=== PATIENT | male | born 1980 | race Caucasian/White ===

== ENCOUNTER 2018-12-20 08:43 | Emergency (ER) | payer MEDICAID ==
[~2018-12-20] VITALS: Ht 172.7 cm; Wt 72.6 kg
[2018-12-20 08:52] VITALS: BP_SYST 130
[2018-12-20] MEDS ORDERED: KETOROLAC TROMETHAMINE 60 MG/2 ML VIAL IM ONE (09:15)
[2018-12-20] MEDS ORDERED: LORazepam 1 MG TABLET PO ONE (09:15)
[2018-12-20 10:35] VITALS: BP_SYST 124
[2018-12-20 10:35] LABS: BILIRUBIN,URINE NEGATIVE (NEGATIVE); BLOOD, URINE 2+ (NEGATIVE); CLARITY/URINE CLEAR (CLEAR); COLOR,URINE YELLOW (YELLOW); GLUCOSE,URINE NEGATIVE (NEGATIVE); KETONES,URINE NEGATIVE (NEGATIVE); LEUKOCYTE ESTERASE ,URINE NEGATIVE (NEGATIVE); NITRITE, URINE NEGATIVE (NEGATIVE); PH,URINE >=9.0 (5.0-8.0); PROTEIN URINE 2+ (NEGATIVE); UROBILINOGEN,URINE 0.2 (0.2-1.0)
[2018-12-20 10:41] LABS: BACTERIA,URINE RARE /HPF (None Seen); MUCUS,URINE 1+ /LPF (None Seen); RBC,URINE 20-50 /HPF (0-3); WBC,URINE 0-3 /HPF (0-3)
[2018-12-22 05:14] LABS: CHLAMYDIA TRACHOMATIS NAA Negative (Negative); NEISSERIA GONORRHOEAE NAA Negative (Negative)
== END 2018-12-20 10:35 | disposition home or self-care (01) ==
LOC: SED 08:43
DX: N41.0 Acute prostatitis (principal)
CPT/HCPCS: 74018; 81000; 87491; 87591; 96372; 99284; J1885; 99283

== ENCOUNTER 2020-03-31 12:19 | Emergency (ER) | payer MEDICAID ==
[~2020-03-31] VITALS: Ht 172.7 cm; Wt 77.1 kg
[2020-03-31 12:20] VITALS: BP_SYST 136
--- NOTE | 2020-03-31 12:20 | NUR ---
BROUGHT BACK TO BED #4 AND TRIAGED. REPORT GIVEN TO LADONNA
--- NOTE | 2020-03-31 12:23 | NUR ---
Patient arrived in the ED WITH c/o alcohol withdrawal. Patient drinks 1L of Vodka daily for the last 25 years. Recently discharged from [facility]. Denied any chest pain or shortness of breath. Denied any fevers, chills, nausea or vomiting. Patient is alert and oriented x4, respirations even and unlabored, speaking in full sentences, and ambulating with a steady gait. VSS, pain level 0/10. Informed of the approximate wait time. Instructed to notify ED staff for any changes in condition or worsening of symptoms while waiting to be seen by an ED provider. Patient verbalized understanding.
--- NOTE | 2020-03-31 12:31 | NUR ---
ER Dr. Westbrook at bedside examining patient.
--- NOTE | 2020-03-31 12:35 | NUR ---
# 18 gauge angiocath placed to LAC. Use of asceptic technique. Opsite placed over site. Blood return noted. Blood for lab drawn from site. Flushed with 10 cc of normal saline. No evidence of infiltration noted. Patient tolerated well.
[2020-03-31] MEDS ORDERED: METOCLOPRAMIDE HCL 10 MG/2 ML VIAL IVP ONE (12:45)
[2020-03-31] MEDS ORDERED: NACL 0.9% 1,000 ML IV ONE (12:45)
[2020-03-31 13:11] LABS: BASOPHILS % (AUTO) 0.3 % (0.0-2.0); EOSINOPHILS % (AUTO) 0.6 % (0.0-4.0); HEMATOCRIT 39.7 % (36-54); HEMOGLOBIN 13.8 g/dL (14.0-18.0); LYMPHOCYTES # (AUTO) 0.8 K/uL (1.0-5.5); LYMPHOCYTES % (AUTO) 13.1 % (20.5-51.5); MEAN CORPUSCULAR HEMOGLOBIN 31 pg (27-31); MEAN CORPUSCULAR HGB CONC 35 % (32-36); MEAN CORPUSCULAR VOLUME 88 fL (79.0-98.0); MONOCYTES # (AUTO) 0.4 K/uL (0.0-1.0); MONOCYTES % (AUTO) 6.3 % (1.7-9.3); NEUTROPHILS % (AUTO) 79.7 % (40.0-70.0); PLATELET COUNT (AUTO) 127 K/uL (130-430); RED BLOOD CELL COUNT(AUTO) 4.49 MIL/uL (4.2-6.2); RED CELL DISTRIBUTION WIDTH 13.9 % (9.0-15.0); WHITE BLOOD COUNT (AUTO) 6.2 K/uL (4.8-10.8)
[2020-03-31 13:18] LABS: ANION GAP 14 (5-15); CALCIUM 9.1 mg/dL (8.4-11.0); CHLORIDE 93 mmol/L (98-107); CREATININE 0.64 mg/dL (0.55-1.30); GLUCOSE 150 mg/dL (70-99); POTASSIUM 3.1 mmol/L (3.5-5.1); SODIUM SERUM 135 mmol/L (136-145); UREA NITROGEN, BLOOD 9 mg/dL (8-21)
[2020-03-31 13:23] LABS: GFR AFRICAN AMERICAN 180 mL/min (>90)
--- NOTE | 2020-03-31 13:25 | NUR ---
Administered Reglan IVP as ordered by Dr. Westbrook. Patient tolerated the medications well. See eMAR for details.
[2020-03-31 13:27] LABS: ALANINE AMINOTRANSFERASE 78 U/L (12-78); ALBUMIN 4.5 g/dL (3.4-4.8); ALCOHOL, BLOOD 179 mg/dL (<10); ASPARTATE AMINOTRANSFERASE 97 U/L (10-37); LIPASE 220 U/L (73-393); TOTAL BILIRUBIN 1.2 mg/dL (0.0-1.0)
[2020-03-31] MEDS ORDERED: LORazepam 2 MG/ML VIAL IVP ONE (13:30)
[2020-03-31] MEDS ORDERED: D5NS 500 ML IV ONE (13:30)
--- NOTE | 2020-03-31 13:40 | NUR ---
Patient left AMA. AMA form signed. MD is aware. Patient denied any chest pain or shortness of breath. Respirations even and unlabored, speaking in full sentences and ambulated with a steady gait.
[2020-03-31 13:45] VITALS: BP_SYST 136
== END 2020-03-31 13:40 | disposition left against medical advice (07) ==
LOC: SED 12:19
DX: R10.13 Epigastric pain (principal); E87.2 Acidosis; F10.229 Alcohol dependence with intoxication, unspecified
CPT/HCPCS: 36415; 80053; 81002; 83690; 84484; 85025; 93005; 96374; 99284; G0482; J7030

== ENCOUNTER 2020-04-08 11:06 | Emergency (ER) | payer MEDICAID ==
[~2020-04-08] VITALS: Ht 172.7 cm; Wt 77.1 kg
[2020-04-08 11:37] VITALS: BP_SYST 144
--- NOTE | 2020-04-08 11:42 | NUR ---
Patient triaged and placed in waiting room. VSS and patient appears in no acute distress at this time. Awaiting available bed, and MD notified of need for MSE.
--- NOTE | 2020-04-08 11:50 | NUR ---
ER Dr. Westbrook in waiting room examining patient.
[2020-04-08 12:19] LABS: BASOPHILS % (AUTO) 0.6 % (0.0-2.0); EOSINOPHILS % (AUTO) 0.2 % (0.0-4.0); HEMATOCRIT 38.9 % (36-54); HEMOGLOBIN 13.3 g/dL (14.0-18.0); LYMPHOCYTES # (AUTO) 0.8 K/uL (1.0-5.5); LYMPHOCYTES % (AUTO) 11.8 % (20.5-51.5); MEAN CORPUSCULAR HEMOGLOBIN 31 pg (27-31); MEAN CORPUSCULAR HGB CONC 34 % (32-36); MEAN CORPUSCULAR VOLUME 90 fL (79.0-98.0); MONOCYTES # (AUTO) 1.2 K/uL (0.0-1.0); MONOCYTES % (AUTO) 17.5 % (1.7-9.3); NEUTROPHILS # (AUTO) 4.7 K/uL (1.8-7.7); NEUTROPHILS % (AUTO) 69.9 % (40.0-70.0); PLATELET COUNT (AUTO) 231 K/uL (130-430); RED BLOOD CELL COUNT(AUTO) 4.32 MIL/uL (4.2-6.2); RED CELL DISTRIBUTION WIDTH 14.5 % (9.0-15.0); WHITE BLOOD COUNT (AUTO) 6.8 K/uL (4.8-10.8)
[2020-04-08 12:40] LABS: ALBUMIN 4.4 g/dL (3.4-4.8); CALCIUM 8.7 mg/dL (8.4-11.0); CREATININE 0.64 mg/dL (0.55-1.30); TOTAL BILIRUBIN 0.9 mg/dL (0.0-1.0)
[2020-04-08 12:43] LABS: POTASSIUM 2.9 mmol/L (3.5-5.1)
--- NOTE | 2020-04-08 13:11 | NUR ---
Patient to [facility] for evaluation. Side rails up. Report given to GIOVANNA Turk.
[2020-04-08] MEDS ORDERED: POTASSIUM CHLORIDE 20 MEQ/PKT PACKET PO ONE ×2 (13:15→15:45)
[2020-04-08] MEDS ORDERED: NACL 0.9% 1,000 ML IV ONE (13:30)
[2020-04-08] MEDS ORDERED: chlordiazePOXIDE HCL 25 MG CAPSULE PO ONE (13:30)
--- NOTE | 2020-04-08 13:45 | NUR ---
ANGELO TO ASSUME CARE, CALM, ALERT, RESP UNLABORED, SKIN WARM AND DRY. STEADY GAIT, NO DISTRESS
[2020-04-08] MEDS ORDERED: LORazepam 2 MG/ML VIAL IVP ONE (15:15)
--- NOTE | 2020-04-08 15:33 | NUR ---
DR PAULINO IN FOR REASSESSMENT. PT CALM, ALERT, STATED FEELING BETTER.
[2020-04-08] MEDS ORDERED: POTASSIUM CHLORIDE 20 MEQ/PKT PACKET ONE (15:44)
[2020-04-08 16:00] VITALS: BP_SYST 138
--- NOTE | 2020-04-08 16:02 | NUR ---
Patient given written and verbal discharge instructions and verbalizes understanding. ER MD discussed with patient the results and treatment provided. Patient in stable condition. ID arm band removed. IV catheter removed intact and dressing applied, no active bleeding. Opportunity for questions provided and answered.
== END 2020-04-08 16:00 | disposition home or self-care (01) ==
LOC: SED 11:06
DX: F10.239 Alcohol dependence with withdrawal, unspecified (principal); R25.2 Cramp and spasm; E87.6 Hypokalemia
CPT/HCPCS: 36415; 80053; 85025; 96361; 96374; 99284; J2060; J7030

== ENCOUNTER 2020-07-21 15:54 | Emergency (ER) | payer MEDICAID ==
[~2020-07-21] VITALS: Ht 172.7 cm; Wt 77.1 kg
[2020-07-21 15:56] VITALS: BP_SYST 147
[2020-07-21] MEDS ORDERED: ONDANSETRON HCL 4 MG/2 ML VIAL ONE (16:07)
[2020-07-21] MEDS ORDERED: NACL 0.9% 1,000 ML IV ONE (16:15)
[2020-07-21] MEDS ORDERED: ONDANSETRON HCL 4 MG/2 ML VIAL IVP ONE (16:15)
[2020-07-21] MEDS ORDERED: ONDA8TAB6 PO (16:30)
[2020-07-21] MEDS ORDERED: IBUP-1971 PO (16:30)
[2020-07-21] MEDS ORDERED: KETOROLAC TROMETHAMINE 30 MG VIAL IVP ONE (16:30)
[2020-07-21] MEDS ORDERED: LIB25 PO (16:30)
[2020-07-21 17:15] LABS: CALCIUM 8.5 mg/dL (8.4-11.0); CREATININE 0.85 mg/dL (0.55-1.30); POTASSIUM 3.7 mmol/L (3.5-5.1)
[2020-07-21 17:17] LABS: BASOPHILS % (AUTO) 0.5 % (0.0-2.0); HEMATOCRIT 42.8 % (36-54); HEMOGLOBIN 14.7 g/dL (14.0-18.0); LYMPHOCYTES # (AUTO) 0.9 K/uL (1.0-5.5); LYMPHOCYTES % (AUTO) 14.4 % (20.5-51.5); MEAN CORPUSCULAR HEMOGLOBIN 32 pg (27-31); MEAN CORPUSCULAR HGB CONC 34 % (32-36); MEAN CORPUSCULAR VOLUME 93 fL (79.0-98.0); MONOCYTES # (AUTO) 0.4 K/uL (0.0-1.0); MONOCYTES % (AUTO) 5.3 % (1.7-9.3); NEUTROPHILS # (AUTO) 5.3 K/uL (1.8-7.7); NEUTROPHILS % (AUTO) 79.8 % (40.0-70.0); PLATELET COUNT (AUTO) 199 K/uL (130-430); RED BLOOD CELL COUNT(AUTO) 4.59 MIL/uL (4.2-6.2); RED CELL DISTRIBUTION WIDTH 13.4 % (9.0-15.0); WHITE BLOOD COUNT (AUTO) 6.6 K/uL (4.8-10.8)
[2020-07-21 17:21] LABS: ALBUMIN 4.1 g/dL (3.4-4.8); TOTAL BILIRUBIN 0.9 mg/dL (0.0-1.0)
[2020-07-21] MEDS ORDERED: LORazepam 2 MG/ML VIAL IVP ONE (17:30)
[2020-07-21 18:00] VITALS: BP_SYST 140
== END 2020-07-21 18:00 | disposition home or self-care (01) ==
LOC: SED 15:54
DX: R11.2 Nausea with vomiting, unspecified (principal); F41.9 Anxiety disorder, unspecified; F17.290 Nicotine dependence, other tobacco product, uncomplicated; I10 Essential (primary) hypertension; Z79.899 Other long term (current) drug therapy
CPT/HCPCS: 36415; 80053; 83690; 85025; 96361; 96374; 96375; 99284; J1885; J2060; J2405; J7030

== ENCOUNTER 2021-01-18 09:16 | Inpatient (IN) | payer MEDICAID, SELFPAY ==
[~2021-01-18] VITALS: Ht 177.8 cm; Wt 74.8 kg
[~2021-01-18 09:16] MED LIST: IBUP-1971 PO; LIB25 PO; ONDA8TAB6 PO
--- NOTE | 2021-01-18 09:25 | NUR ---
Patient to ER bed 5 to gown for evaluation. Side rails up. Report given to Arsen HEREDIA.
--- NOTE | 2021-01-18 09:25 | NUR ---
MD HUANG AT BEDSIDE ASSESSING PT.
[2021-01-18 09:29] VITALS: BP_SYST 155
[2021-01-18] MEDS ORDERED: NACL 0.9% 2,000 ML IV ONE (09:30)
[2021-01-18] MEDS ORDERED: LORazepam 2 MG/ML VIAL IVP ONE ×2 (09:30→10:30)
--- NOTE | 2021-01-18 09:40 | NUR ---
IV ACCESS INSERTED TO THE RIGHT AC IN ONE ATTEMPT WITH 20G. IV FLUIDS STARTED, LABS TAKEN.
[2021-01-18 09:55] LABS: BASOPHILS % (AUTO) 0.4 % (0.0-2.0); EOSINOPHILS % (AUTO) 0.1 % (0.0-4.0); HEMATOCRIT 41.1 % (36-54); HEMOGLOBIN 14.4 g/dL (14.0-18.0); LYMPHOCYTES # (AUTO) 0.9 K/uL (1.0-5.5); LYMPHOCYTES % (AUTO) 8.7 % (20.5-51.5); MEAN CORPUSCULAR HEMOGLOBIN 32 pg (27-31); MEAN CORPUSCULAR HGB CONC 35 % (32-36); MEAN CORPUSCULAR VOLUME 93 fL (79.0-98.0); MONOCYTES # (AUTO) 0.4 K/uL (0.0-1.0); MONOCYTES % (AUTO) 3.6 % (1.7-9.3); NEUTROPHILS # (AUTO) 8.9 K/uL (1.8-7.7); NEUTROPHILS % (AUTO) 87.2 % (40.0-70.0); PLATELET COUNT (AUTO) 225 K/uL (130-430); RED BLOOD CELL COUNT(AUTO) 4.43 MIL/uL (4.2-6.2); RED CELL DISTRIBUTION WIDTH 13.7 % (9.0-15.0); WHITE BLOOD COUNT (AUTO) 10.2 K/uL (4.8-10.8)
[2021-01-18 09:59] LABS: ANION GAP 16 (5-15); CHLORIDE 93 mmol/L (98-107); CREATININE 0.94 mg/dL (0.55-1.30); GLUCOSE 242 mg/dL (70-99); POTASSIUM 3.4 mmol/L (3.5-5.1); SODIUM SERUM 137 mmol/L (136-145); UREA NITROGEN, BLOOD 9 mg/dL (8-21)
[2021-01-18 10:03] LABS: GFR AFRICAN AMERICAN 115 mL/min (>90)
[2021-01-18 10:05] LABS: ALANINE AMINOTRANSFERASE 68 U/L (12-78); ALBUMIN 4.6 g/dL (3.4-4.8); ALCOHOL, BLOOD 166 mg/dL (<10); AMYLASE 186 U/L (0-100); ASPARTATE AMINOTRANSFERASE 70 U/L (10-37); LIPASE 208 U/L (73-393); PROTHROMBIN TIME 10.3 SECS (9.5-12.5); TOTAL BILIRUBIN 0.6 mg/dL (0.0-1.0)
--- NOTE | 2021-01-18 10:14 | NUR ---
PT GIVEN JUICE AND ICE WATER WELL, RN NOTED A NEAT DROP IN HR WHEN GIVEN GLUCOSE IN THE FORM OF JUICE. PT IS CALMING DOWN STEADILY.
--- NOTE | 2021-01-18 10:15 | NUR ---
PT ADMITS TO BEING AN ALCOHOLIC AND WORRIED ABOUT IMPENDING SEIZURE AND/OR VOMITING.
[2021-01-18 10:22] LABS: ACETONE, SERUM NEGATIVE (NEGATIVE)
--- NOTE | 2021-01-18 10:29 | NUR ---
IMPROVEMENTS NOTED IN ALL VS, AND ANXIETY LEVEL. PT IS RESTING, SITTING UP AT 45 DEGREES. MD ORDERED 2ND NS BAG ALONG WITH ATIVAN. NOTED.
[2021-01-18] MEDS ORDERED: LORA-259 PO (11:43)
--- NOTE | 2021-01-18 13:00 | NUR ---
ADMITTED UNDER MD ZOE JONES AND HAS PUT IN ALL ORDERS . PT WILL BE HELD IN THE ER UNTIL TELEMETRY BED/NURSE IS AVAILABLE.
[2021-01-18] MEDS ORDERED: MORPHINE 2 MG/ML INJ. SYRINGE IVP PRN (14:00)
[2021-01-18] MEDS ORDERED: DEXTROSE 50% JECT 50 ML DISP.SYRIN IVP PRN (14:00)
[2021-01-18] MEDS ORDERED: MORPHINE 4 MG INJ. 4 MG/ML VIAL IVP PRN (14:00)
[2021-01-18] MEDS ORDERED: INSULIN LISPRO SLIDING SCALE 100 UNITS/ML VIAL (humaLOG) SUBCUT PRN (14:00)
[2021-01-18] MEDS ORDERED: POTASSIUM CHLORIDE 20 MEQ TAB.PRT.SR PO PRN (14:15)
[2021-01-18] MEDS: ONDANSETRON HCL 4 MG/2 ML VIAL IVP PRN (15:24)
[2021-01-18] MEDS: LORazepam 2 MG/ML VIAL IVP PRN ×2 (15:28→20:01)
[2021-01-18] MEDS ORDERED: POTASSIUM CHLORIDE 20 MEQ TAB.PRT.SR ONE (15:59)
--- NOTE | 2021-01-18 16:18 | NUR ---
PT CONTINUES TO REST, HR IS 79, MUCH IMPROVED. PT STILL HAS TREMORS AND OCCASIONAL VOMIT RETCHING.
[2021-01-18] MEDS ORDERED: FOLIC ACID 1 MG TABLET PO ONE (17:00)
[2021-01-18] MEDS ORDERED: THIAMINE HCL 100 MG TABLET PO ONE (17:00)
[2021-01-18] MEDS ORDERED: THIAMINE HCL 100 MG TABLET ONE (18:26)
--- NOTE | 2021-01-18 19:20 | NUR ---
RECEIVED REPORT FROM GIOVANNA BARRIENTOS. PATIENT SLEEPING AT THIS TIME. NO VISUAL SIGNS OF DISTRESS.
[2021-01-18] MEDS: NACL 0.9% 1,000 ML IV SCH (19:28)
[2021-01-18 19:37] LABS: BARBITURATE, URINE NEGATIVE (NEG <=200); BENZODIAZEPINE, URINE POSITIVE (NEG <=150); CANNABINOID, URINE NEGATIVE (NEG <=50); COCAINE, URINE NEGATIVE (NEG <=150); METHAMPHETAMINES SCREEN,URINE NEGATIVE (NEG <=500); OPIATE, URINE NEGATIVE (NEG <=100); PHENCYCLIDINE SCREEN,URINE NEGATIVE (NEG <=25); UR TRICYCLIC ANTIDEPRESSANTS NEGATIVE (NEG <=300); URINE AMPHETAMINE NEGATIVE (NEG <=500); URINE METHADONE NEGATIVE (NEG <=200); URINE OXYCODONE SCREEN NEGATIVE (NEG <=100); URINE PROPOXYPHENE SCREEN NEGATIVE (NEG <=300)
--- NOTE | 2021-01-18 20:30 | NUR ---
DR. GRAFF AT BEDSIDE WITH PATIENT.
--- NOTE | 2021-01-18 21:26 | NUR ---
BS CHECKED 89. NO COVERAGE NEEDED.
[2021-01-18] MEDS ORDERED: LIDOCAINE VISCOUS 2%, 15 ML UDC MM ONE (21:45)
--- NOTE | 2021-01-18 22:19 | NUR ---
Patient's code status is FULL CODE paperwork completed and placed in chart.
--- NOTE | 2021-01-18 22:59 | NUR ---
medication administered as ordered.
--- NOTE | 2021-01-18 23:32 | NUR ---
Medicated per MD orders. IVF infusing with no s/s of infiltration at this time. Will cont to monitor
--- NOTE | 2021-01-19 01:00 | NUR ---
PT STATING HAVING ANXIETY WITH TREMORS. ADDITIONAL ATIVAN PRN GIVEN. PT TOLERATING WELL.
[2021-01-19] MEDS: LORazepam 2 MG/ML VIAL IVP PRN ×3 (01:17→10:25)
--- NOTE | 2021-01-19 02:39 | NUR ---
Patient resting quietly. No acute distress noted. Vital signs within normal range.
--- NOTE | 2021-01-19 04:20 | NUR ---
Patient resting quietly. No acute distress noted. Vital signs within normal range. IVF INFUSING WITHOUT DIFFICULTIES. NO FURTHER SIGNS OF ANXIETY.
[2021-01-19] MEDS ORDERED: LORazepam 2 MG/ML VIAL ONE (05:42)
--- NOTE | 2021-01-19 06:27 | NUR ---
BELONGINGS DONE AT BEDSIDE.
[2021-01-19] MEDS: NACL 0.9% 1,000 ML IV SCH (07:07)
--- NOTE | 2021-01-19 07:10 | NUR ---
REPORT GIVEN TO GIOVANNA PATEL WHO WILL ASSUME CARE.
--- NOTE | 2021-01-19 07:17 | NUR ---
Pt is resting in [facility] VSS no distress noted at this time.
--- NOTE | 2021-01-19 07:20 | NUR ---
Patient will be admitted to care of Dr. Sultana. Admitted to Telemetry unit. Will go to room 130A. Belongings list completed. Complete and up to date summary report printed. SBAR report to be given at bedside with opportunity for questions.
--- NOTE | 2021-01-19 07:36 | NUR ---
# 22 gauge angiocath placed to LFA. Use of asceptic technique. Opsite placed over site. Blood return noted. Blood for lab drawn from site. Flushed with 10 cc of normal saline. No evidence of infiltration noted. Patient tolerated well.
--- NOTE | 2021-01-19 07:36 | NUR ---
transferred to telemetry unit via [facility] accompanied by staff.
[2021-01-19 08:00] VITALS: BP_SYST 131
--- NOTE | 2021-01-19 08:00 | NUR ---
ADMISSION NOTE Received patient from ER via gurney. Patient admitted with diagnosis of . Patient is awake, alert, oriented X 4. Patient oriented to hospital room, call light, toileting, pain management and safety-teach back done. Personal belongings checked and Belongings List documented. Call light within reach.
[2021-01-19] MEDS: ONDANSETRON HCL 4 MG/2 ML VIAL IVP PRN (08:21)
[2021-01-19] MEDS ORDERED: THIAMINE HCL 100 MG TABLET PO SCH (09:00)
[2021-01-19] MEDS ORDERED: FOLIC ACID 1 MG TABLET PO SCH (09:00)
[2021-01-19] MEDS ORDERED: PANTOPRAZOLE SODIUM 40 MG TAB PO SCH (09:00)
[2021-01-19 09:39] LABS: BASOPHILS % (AUTO) 0.3 % (0.0-2.0); EOSINOPHILS # (AUTO) 0.1 K/uL (0.0-0.4); EOSINOPHILS % (AUTO) 0.9 % (0.0-4.0); HEMATOCRIT 37.3 % (36-54); LYMPHOCYTES # (AUTO) 0.6 K/uL (1.0-5.5); LYMPHOCYTES % (AUTO) 7.7 % (20.5-51.5); MEAN CORPUSCULAR HEMOGLOBIN 32 pg (27-31); MEAN CORPUSCULAR HGB CONC 35 % (32-36); MEAN CORPUSCULAR VOLUME 93 fL (79.0-98.0); MONOCYTES # (AUTO) 0.3 K/uL (0.0-1.0); NEUTROPHILS # (AUTO) 6.7 K/uL (1.8-7.7); NEUTROPHILS % (AUTO) 87.1 % (40.0-70.0); PLATELET COUNT (AUTO) 124 K/uL (130-430); RED BLOOD CELL COUNT(AUTO) 4.01 MIL/uL (4.2-6.2); RED CELL DISTRIBUTION WIDTH 13.1 % (9.0-15.0); WHITE BLOOD COUNT (AUTO) 7.7 K/uL (4.8-10.8)
[2021-01-19 09:57] LABS: CALCIUM 8.4 mg/dL (8.4-11.0); CREATININE 0.61 mg/dL (0.55-1.30); POTASSIUM 3.1 mmol/L (3.5-5.1)
--- NOTE | 2021-01-19 10:00 | NUR ---
RN NOTE DR. THORNTON AT BEDSIDE, EXAMINING PATIENT. PATIENT PULLED OUT IV. NEW IV STARTED ON RIGHT FOREARM 22G. SEIZURE PRECAUTIONS INITIATED. PATIENT COMPLAINING OF ANXIETY. ATIVAN 1 MG IVP GIVEN. WILL MONITOR PATIENT.
[2021-01-19] MEDS ORDERED: MAGNESIUM OXIDE 400 MG TABLET PO ONE (14:15)
--- NOTE | 2021-01-19 14:29 | NUR ---
CONSULTATION PAGED/CALLED Reason for Consultation: [] DEPRESSION, ALCOHOL ABUSE Person Who was Notified: [] SIGRID Consulting Physician: [] DR CHILD Internal Controls Manager Specialty: [] PSYCH Ordering Physician: [] DR JONES
--- NOTE | 2021-01-19 14:36 | NUR ---
AMA: Patient does not wish to proceed with medical care recommended by Dr. Santamaria. Patient given information related to possible complications, up to and including , which could occur as a result of leaving hospital at this time. Patient verbalizes understanding of risks involved leaving against medical advice. Patient has signed AMA form. Patient escorted out by security.
--- NOTE | 2021-01-19 14:37 | NUR ---
ATTENDING MD DR JONES WAS CALLED TO INFORM HIM THAT PT WENT AMA.
== END 2021-01-19 14:35 | disposition left against medical advice (07) | DRG 425 ==
LOC: SED 09:16 → STU 13:55
PROVIDERS: ADMIT Hospitalist; ATTEND Hospitalist
DX: E87.6 Hypokalemia (principal); E87.2 Acidosis; E11.65 Type 2 diabetes mellitus with hyperglycemia; F41.9 Anxiety disorder, unspecified; F10.129 Alcohol abuse with intoxication, unspecified; Y90.9 Presence of alcohol in blood, level not specified; R74.01 Elevation of levels of liver transaminase levels; Z53.29 Procedure and treatment not carried out because of patient's decision for other reasons; F32.9 Major depressive disorder, single episode, unspecified; Z20.822 Contact with and (suspected) exposure to COVID-19; Z79.1 Long term (current) use of non-steroidal anti-inflammatories (NSAID); Z79.899 Other long term (current) drug therapy
CPT/HCPCS: 36415; 71045; 80048; 80053; 80307; 82009; 82150; 82962; 83036; 83605; 83690; 83735; 84484; 85025; 85610-TC; 85730-TC; 96361; 96374; 96376; 99285; G0378; G0482; J2001; J2060; J2270; J2405

== ENCOUNTER 2022-07-09 02:55 | Emergency (ER) | payer OTHER, MEDICAID ==
[~2022-07-09] VITALS: Ht 172.7 cm; Wt 81.6 kg
[2022-07-09 02:55] VITALS: BP_SYST 124
[~2022-07-09 02:55] MED LIST changes: +LORA-259 PO
--- NOTE | 2022-07-09 02:58 | NUR ---
Patient to ER bed 06 to gown for evaluation. Side rails up. Report given to GIOVANNA DOUGHERTY.
--- NOTE | 2022-07-09 03:02 | NUR ---
Dr. Boggs at bedside examining the patient.
--- NOTE | 2022-07-09 03:04 | NUR ---
Patient arrived to ED bed 6 for c/o alcohol intoxication. Patient said that he feels "anxious and restless." Patient said that he drank vodka today. Patient went to [facility] Wednesday night, but was discharged from ED [facility] a few hours later. 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 He went to addiction treatment facility to be admitted. Patient has appointment at [facility] in morning according to patient, but patient said he "does not feel normal" at this time. Dr. Boggs at bedside to MSE patient.
[2022-07-09] MEDS ORDERED: NACL 0.9% 1,000 ML IV ONE ×2 (03:15→04:45)
[2022-07-09] MEDS ORDERED: LORazepam 2 MG/ML VIAL IVP ONE ×2 (03:15→04:45)
--- NOTE | 2022-07-09 03:29 | NUR ---
Portable x-ray done at bedside.
[2022-07-09 04:02] LABS: BASOPHILS % (AUTO) 0.5 % (0.0-2.0); EOSINOPHILS # (AUTO) 0.1 K/uL (0.0-0.4); EOSINOPHILS % (AUTO) 1.4 % (0.0-4.0); HEMATOCRIT 39.3 % (36-54); HEMOGLOBIN 13.2 g/dL (14.0-18.0); LYMPHOCYTES # (AUTO) 2.6 K/uL (1.0-5.5); LYMPHOCYTES % (AUTO) 41.7 % (20.5-51.5); MEAN CORPUSCULAR HEMOGLOBIN 29 pg (27-31); MEAN CORPUSCULAR HGB CONC 34 % (32-36); MEAN CORPUSCULAR VOLUME 85 fL (79.0-98.0); MONOCYTES # (AUTO) 0.4 K/uL (0.0-1.0); MONOCYTES % (AUTO) 6.7 % (1.7-9.3); NEUTROPHILS % (AUTO) 49.7 % (40.0-70.0); PLATELET COUNT (AUTO) 305 K/uL (130-430); RED BLOOD CELL COUNT(AUTO) 4.62 MIL/uL (4.2-6.2); WHITE BLOOD COUNT (AUTO) 6.1 K/uL (4.8-10.8)
[2022-07-09 04:12] LABS: ANION GAP 11 (5-15); CALCIUM 8.3 mg/dL (8.4-11.0); CHLORIDE 103 mmol/L (98-107); CREATININE 0.89 mg/dL (0.55-1.30); GLUCOSE 136 mg/dL (70-99); UREA NITROGEN, BLOOD 12 mg/dL (8-21)
[2022-07-09 04:18] LABS: GFR AFRICAN AMERICAN 122 mL/min (>90)
[2022-07-09 04:19] LABS: ALANINE AMINOTRANSFERASE 35 U/L (12-78); ALBUMIN 3.8 g/dL (3.4-4.8); ALCOHOL, BLOOD 185 mg/dL (<10); ASPARTATE AMINOTRANSFERASE 25 U/L (10-37); TOTAL BILIRUBIN 0.3 mg/dL (0.0-1.0)
[2022-07-09 09:00] VITALS: BP_SYST 130
--- NOTE | 2022-07-09 09:00 | NUR ---
PT MEDICALLY CLEARED FOR D/C. D/C INSTRUCTIONS GIVEN TO PT. PT TO FOLLOW UP WITH PCP WITHIN 1-3 DAYS AND RETURN TO ED FOR WORSENING S/S. PT VERBALZIED UNDERSTANDING. PT IS AAOX4, NAD, WRISTBAND REMOVED. PT AMBULATORY WITH STEADY GAIT. PT LEFT ED WITH ALL BELONGINGS.
== END 2022-07-09 09:00 | disposition home or self-care (01) ==
LOC: SED 02:55
DX: F10.129 Alcohol abuse with intoxication, unspecified (principal); F41.9 Anxiety disorder, unspecified; R00.2 Palpitations; I10 Essential (primary) hypertension; Z79.899 Other long term (current) drug therapy; Y90.6 Blood alcohol level of 120-199 mg/100 ml
CPT/HCPCS: 99285; 96374; 71045; 96361; 80053; 85025; 84484; 36415; 93005; 96376; G0482; J2060; J7030

== ENCOUNTER 2022-12-13 20:45 | Emergency (ER) | payer MEDICAID, OTHER ==
[~2022-12-13] VITALS: Ht 172.7 cm; Wt 93.0 kg
[2022-12-13 20:54] VITALS: BP_SYST 148; PULSE 145; RESP 24; TEMP 99.5; O2SAT 94
[2022-12-13] MEDS ORDERED: NACL 0.9% 1,000 ML IV ONE (21:15)
[2022-12-13 21:37] LABS: BASOPHILS % (AUTO) 0.5 % (0.0-2.0); EOSINOPHILS # (AUTO) 0.1 K/uL (0.0-0.4); EOSINOPHILS % (AUTO) 0.8 % (0.0-4.0); HEMATOCRIT 38.1 % (36-54); HEMOGLOBIN 12.8 g/dL (14.0-18.0); LYMPHOCYTES % (AUTO) 44.9 % (20.5-51.5); MEAN CORPUSCULAR HEMOGLOBIN 30 pg (27-31); MEAN CORPUSCULAR HGB CONC 34 % (32-36); MEAN CORPUSCULAR VOLUME 89 fL (79.0-98.0); MONOCYTES # (AUTO) 0.6 K/uL (0.0-1.0); MONOCYTES % (AUTO) 8.6 % (1.7-9.3); NEUTROPHILS # (AUTO) 3.1 K/uL (1.8-7.7); NEUTROPHILS % (AUTO) 45.2 % (40.0-70.0); PLATELET COUNT (AUTO) 261 K/uL (130-430); RED BLOOD CELL COUNT(AUTO) 4.29 MIL/uL (4.2-6.2); RED CELL DISTRIBUTION WIDTH 15.6 % (9.0-15.0); WHITE BLOOD COUNT (AUTO) 6.8 K/uL (4.8-10.8)
[2022-12-13 21:43] LABS: ACETONE, SERUM NEGATIVE (NEGATIVE)
[2022-12-13 21:46] LABS: ALANINE AMINOTRANSFERASE 49 U/L (12-78); ALBUMIN 3.7 g/dL (3.4-4.8); ALCOHOL, BLOOD 208 mg/dL (<10); ANION GAP 14 (5-15); ASPARTATE AMINOTRANSFERASE 54 U/L (10-37); CALCIUM 8.4 mg/dL (8.4-11.0); CHLORIDE 101 mmol/L (98-107); CREATININE 1.26 mg/dL (0.55-1.30); GFR AFRICAN AMERICAN 81 mL/min (>90); GLUCOSE 138 mg/dL (74-106); LIPASE 120 U/L (73-393); PHOSPHORUS 1.9 mg/dL (2.7-4.5); TOTAL BILIRUBIN 0.1 mg/dL (0.0-1.0); UREA NITROGEN, BLOOD 13 mg/dL (8-21)
[2022-12-13] MEDS ORDERED: DIAZEPAM 10 MG/2 ML DISP.SYRIN IVP ONE (22:00)
[2022-12-13] MEDS ORDERED: LORazepam 2 MG/ML VIAL IVP ONE (23:30)
[2022-12-14] VITALS: BP_SYST 134; PULSE 102; RESP 18; TEMP 98.4; O2SAT 97
[2022-12-14] MEDS ORDERED: LIB25 PO (01:28)
[2022-12-14] MEDS ORDERED: POTASSIUM CHLORIDE 20 MEQ/PKT PACKET PO ONE (01:30)
== END 2022-12-14 01:54 | disposition home or self-care (01) ==
LOC: SED 20:45
DX: F10.239 Alcohol dependence with withdrawal, unspecified (principal); R10.84 Generalized abdominal pain; R11.10 Vomiting, unspecified; Z79.899 Other long term (current) drug therapy; Y90.6 Blood alcohol level of 120-199 mg/100 ml
CPT/HCPCS: 99284; 96374; 96361; 80053; 82009; 83690; 83735; 84100; 85025; 36415; 93005; G0482; J2060; J7030

== ENCOUNTER 2023-01-30 15:40 | Emergency (ER) | payer MEDICAID ==
[~2023-01-30] VITALS: Ht 170.2 cm; Wt 88.5 kg
[2023-01-30 15:40] VITALS: BP_SYST 138; PULSE 122; RESP 22; TEMP 99.5; O2SAT 91
[2023-01-30 16:15] LABS: BASOPHILS % (AUTO) 0.7 % (0.0-2.0); EOSINOPHILS # (AUTO) 0.1 K/uL (0.0-0.4); HEMATOCRIT 44.7 % (36-54); HEMOGLOBIN 14.9 g/dL (14.0-18.0); LYMPHOCYTES # (AUTO) 2.7 K/uL (1.0-5.5); LYMPHOCYTES % (AUTO) 37.8 % (20.5-51.5); MEAN CORPUSCULAR HEMOGLOBIN 30 pg (27-31); MEAN CORPUSCULAR HGB CONC 33 % (32-36); MEAN CORPUSCULAR VOLUME 91 fL (79.0-98.0); MONOCYTES # (AUTO) 0.6 K/uL (0.0-1.0); NEUTROPHILS # (AUTO) 3.8 K/uL (1.8-7.7); NEUTROPHILS % (AUTO) 52.5 % (40.0-70.0); PLATELET COUNT (AUTO) 284 K/uL (130-430); RED BLOOD CELL COUNT(AUTO) 4.93 MIL/uL (4.2-6.2); RED CELL DISTRIBUTION WIDTH 14.2 % (9.0-15.0); WHITE BLOOD COUNT (AUTO) 7.2 K/uL (4.8-10.8)
[2023-01-30] MEDS ORDERED: NACL 0.9% 1,000 ML IV ONE (16:15)
[2023-01-30 16:30] LABS: ANION GAP 15 (5-15); CALCIUM 8.4 mg/dL (8.4-11.0); CARBON DIOXIDE 27 mmol/L (23-29); CHLORIDE 98 mmol/L (98-107); CREATININE 0.72 mg/dL (0.55-1.30); GFR AFRICAN AMERICAN 155 mL/min (>90); GLUCOSE 94 mg/dL (74-106); POTASSIUM 3.2 mmol/L (3.5-5.1); SODIUM SERUM 140 mmol/L (136-145); UREA NITROGEN, BLOOD 4 mg/dL (8-21)
[2023-01-30 16:36] LABS: ALANINE AMINOTRANSFERASE 51 U/L (12-78); ALBUMIN 4.3 g/dL (3.4-4.8); ALCOHOL, BLOOD 332 mg/dL (<10); ASPARTATE AMINOTRANSFERASE 60 U/L (10-37); CREATINE KINASE, TOTAL 670 U/L (39-308); GFR NON AFRICAN-AMERICAN 128 mL/min (>90); SALICYLATE 1 mg/dL (3-30); TOTAL BILIRUBIN 0.6 mg/dL (0.0-1.0); TOTAL PROTEIN, SERUM 8.9 g/dL (6.4-8.3)
[2023-01-30 16:37] LABS: ACETAMINOPHEN < 1 ug/mL (1-30)
[2023-01-30 16:49] LABS: ACETONE, SERUM NEGATIVE (NEGATIVE)
[2023-01-30 16:55] VITALS: BP_SYST 122; PULSE 100; RESP 17; TEMP 98.9; O2SAT 96
[2023-01-30 17:16] LABS: CKMB RELATIVE INDEX 0.3 (0.0-2.9); CREATINE KINASE MB 2.1 ng/mL (0-3.6)
== END 2023-01-30 17:38 | disposition left against medical advice (07) ==
LOC: SED 15:40
DX: T42.4X1A Poisoning by benzodiazepines, accidental (unintentional), initial encounter (principal); R10.9 Unspecified abdominal pain; F10.10 Alcohol abuse, uncomplicated; I10 Essential (primary) hypertension; Z79.899 Other long term (current) drug therapy; Y92.89 Other specified places as the place of occurrence of the external cause; Y90.6 Blood alcohol level of 120-199 mg/100 ml
CPT/HCPCS: 99285; 96360; 71045; 80053; 82009; 82550; 82553; 85025; 36415; 93005; G0482; J7030; G0480; G0481

== ENCOUNTER 2023-02-17 15:21 | Emergency (ER) | payer MEDICAID ==
[~2023-02-17] VITALS: Ht 172.7 cm; Wt 81.6 kg
[2023-02-17 15:25] VITALS: BP_SYST 132; PULSE 120; RESP 19; TEMP 98.8; O2SAT 96
[2023-02-17] MEDS ORDERED: ONDANSETRON 4 MG ODT TAB PO ONE (17:30)
[2023-02-17 18:03] LABS: HEMATOCRIT 40.2 % (36-54); HEMOGLOBIN 13.7 g/dL (14.0-18.0); MEAN CORPUSCULAR HEMOGLOBIN 31 pg (27-31); MEAN CORPUSCULAR HGB CONC 34 % (32-36); MEAN CORPUSCULAR VOLUME 91 fL (79.0-98.0); PLATELET COUNT (AUTO) 286 K/uL (130-430); RED BLOOD CELL COUNT(AUTO) 4.41 MIL/uL (4.2-6.2); WHITE BLOOD COUNT (AUTO) 3.8 K/uL (4.8-10.8)
[2023-02-17 18:06] VITALS: BP_SYST 137; PULSE 104; TEMP 97.8; O2SAT 97
[2023-02-17] MEDS ORDERED: FOLIC ACID 1 MG, THIAMINE HCL 100 MG, MAGNESIUM SULFATE 1 GM, MVI 10 ML in NACL 0.9% 1,... IV ONE (18:15)
[2023-02-17 18:28] LABS: ALBUMIN 4.2 g/dL (3.4-4.8); CALCIUM 8.9 mg/dL (8.4-11.0); CREATININE 0.67 mg/dL (0.55-1.30); POTASSIUM 3.6 mmol/L (3.5-5.1); TOTAL BILIRUBIN 0.3 mg/dL (0.0-1.0); TOTAL PROTEIN, SERUM 8.2 g/dL (6.4-8.3)
[2023-02-17] MEDS ORDERED: FOLIC ACID 1 MG, MVI 10 ML in NACL 0.9% 1,000 ML IV ONE (19:00)
[2023-02-17] MEDS ORDERED: THIAMINE HCL 100 MG, MAGNESIUM SULFATE 1 GM in NS 100 ML IV ONE (19:00)
[2023-02-17 19:01] LABS: BAND % (MANUAL) 0 % (0-6); BASOPHILS % (MANUAL) 0 % (0-2); EOSINOPHILS % (MANUAL) 2 % (0-7); LYMPHOCYTES % (MANUAL) 36 % (20-46); MONOCYTES % (MANUAL) 14 % (0-11)
[2023-02-17 19:02] LABS: PLATELET ESTIMATE ADEQUATE (ADEQUATE)
== END 2023-02-17 18:40 | disposition left against medical advice (07) ==
LOC: SED 15:21
DX: F10.129 Alcohol abuse with intoxication, unspecified (principal); R11.0 Nausea; R42 Dizziness and giddiness; I10 Essential (primary) hypertension; F17.200 Nicotine dependence, unspecified, uncomplicated; Z79.899 Other long term (current) drug therapy; Y90.6 Blood alcohol level of 120-199 mg/100 ml
CPT/HCPCS: 99283; 85027; 80053; 83690; 85007; 36415; G0482; Q0162; J3411; J3475; J3490; J7030

== ENCOUNTER 2023-02-18 13:29 | Emergency (ER) | payer MEDICAID ==
[~2023-02-18] VITALS: Ht 167.6 cm; Wt 81.6 kg
[2023-02-18 13:53] VITALS: BP_SYST 123; PULSE 115; RESP 20; TEMP 98.3; O2SAT 98
[2023-02-18] MEDS ORDERED: NACL 0.9% 1,000 ML IV ONE (14:30)
[2023-02-18] MEDS ORDERED: chlordiazePOXIDE HCL 25 MG CAPSULE PO ONE ×2 (14:30→16:00)
[2023-02-18 16:17] VITALS: BP_SYST 123; PULSE 115; RESP 20; TEMP 98.3; O2SAT 98
== END 2023-02-18 16:16 | disposition home or self-care (01) ==
LOC: SED 13:29
DX: F10.129 Alcohol abuse with intoxication, unspecified (principal); F41.9 Anxiety disorder, unspecified; I10 Essential (primary) hypertension; Z79.899 Other long term (current) drug therapy; Y90.6 Blood alcohol level of 120-199 mg/100 ml
CPT/HCPCS: 99283; 96360; J7030

== ENCOUNTER 2023-02-21 06:03 | Emergency (ER) | payer MEDICAID ==
[~2023-02-21] VITALS: Ht 170.2 cm; Wt 95.3 kg
[2023-02-21] MEDS ORDERED: LORazepam 1 MG TABLET PO ONE ×2 (06:30→08:45)
[2023-02-21 06:31] VITALS: BP_SYST 122; PULSE 106; RESP 18; TEMP 98.1; O2SAT 97
[2023-02-21] MEDS ORDERED: ONDANSETRON 4 MG ODT TAB PO ONE (06:45)
[2023-02-21 06:46] LABS: BASOPHILS # (AUTO) 0.1 K/uL (0.0-0.2); BASOPHILS % (AUTO) 0.9 % (0.0-2.0); EOSINOPHILS % (AUTO) 0.9 % (0.0-4.0); HEMATOCRIT 43.7 % (36-54); HEMOGLOBIN 14.6 g/dL (14.0-18.0); LYMPHOCYTES # (AUTO) 1.7 K/uL (1.0-5.5); LYMPHOCYTES % (AUTO) 30.1 % (20.5-51.5); MEAN CORPUSCULAR HEMOGLOBIN 30 pg (27-31); MEAN CORPUSCULAR HGB CONC 33 % (32-36); MEAN CORPUSCULAR VOLUME 91 fL (79.0-98.0); MONOCYTES # (AUTO) 0.5 K/uL (0.0-1.0); MONOCYTES % (AUTO) 9.3 % (1.7-9.3); NEUTROPHILS # (AUTO) 3.4 K/uL (1.8-7.7); NEUTROPHILS % (AUTO) 58.8 % (40.0-70.0); PLATELET COUNT (AUTO) 279 K/uL (130-430); RED BLOOD CELL COUNT(AUTO) 4.81 MIL/uL (4.2-6.2); RED CELL DISTRIBUTION WIDTH 14.2 % (9.0-15.0); WHITE BLOOD COUNT (AUTO) 5.8 K/uL (4.8-10.8)
[2023-02-21 06:51] LABS: ANION GAP 19 (5-15); CALCIUM 9.1 mg/dL (8.4-11.0); CARBON DIOXIDE 24 mmol/L (23-29); CHLORIDE 96 mmol/L (98-107); CREATININE 0.77 mg/dL (0.55-1.30); GFR AFRICAN AMERICAN 143 mL/min (>90); GFR NON AFRICAN-AMERICAN 118 mL/min (>90); GLUCOSE 98 mg/dL (74-106); POTASSIUM 3.3 mmol/L (3.5-5.1); SODIUM SERUM 139 mmol/L (136-145); UREA NITROGEN, BLOOD 7 mg/dL (8-21)
[2023-02-21 06:59] LABS: ALANINE AMINOTRANSFERASE 199 U/L (12-78); ALBUMIN 4.3 g/dL (3.4-4.8); ALCOHOL, BLOOD 246 mg/dL (<10); AMYLASE 268 U/L (0-100); ASPARTATE AMINOTRANSFERASE 129 U/L (10-37); LIPASE 151 U/L (73-393); TOTAL BILIRUBIN 0.8 mg/dL (0.0-1.0); TOTAL PROTEIN, SERUM 8.3 g/dL (6.4-8.3)
[2023-02-21 08:49] LABS: ACETONE, SERUM NEGATIVE (NEGATIVE)
[2023-02-21] MEDS ORDERED: LORA-259 PO (09:00)
[2023-02-21] MEDS ORDERED: ONDA-8 TL (09:01)
[2023-02-21] MEDS ORDERED: HALOPERIDOL LACTATE 5 MG/ML VIAL IVP ONE (10:00)
[2023-02-21 10:35] VITALS: BP_SYST 132; PULSE 124; RESP 20; TEMP 97.8; O2SAT 96
== END 2023-02-21 10:27 | disposition home or self-care (01) ==
LOC: SED 06:03
DX: F10.10 Alcohol abuse, uncomplicated (principal); F41.9 Anxiety disorder, unspecified; R25.1 Tremor, unspecified; I10 Essential (primary) hypertension; Z79.899 Other long term (current) drug therapy; Y90.6 Blood alcohol level of 120-199 mg/100 ml
CPT/HCPCS: 99284; 80053; 82009; 82150; 83690; 85025; 36415; 96372; 83605; G0482; Q0162; J1630

== ENCOUNTER 2023-04-12 15:46 | Emergency (ER) | payer MEDICAID ==
[~2023-04-12] VITALS: Ht 167.6 cm; Wt 77.1 kg
[~2023-04-12 15:46] MED LIST changes: +ONDA-8 TL
[2023-04-12 15:49] VITALS: BP_SYST 140; PULSE 130; RESP 25; TEMP 98.3; O2SAT 98
[2023-04-12] MEDS ORDERED: NACL 0.9% 1,000 ML IV ONE ×2 (16:00→19:00)
[2023-04-12 16:26] LABS: BASOPHILS % (AUTO) 0.4 % (0.0-2.0); EOSINOPHILS # (AUTO) 0.1 K/uL (0.0-0.4); EOSINOPHILS % (AUTO) 2.5 % (0.0-4.0); HEMATOCRIT 38.2 % (36-54); HEMOGLOBIN 12.6 g/dL (14.0-18.0); LYMPHOCYTES # (AUTO) 1.6 K/uL (1.0-5.5); LYMPHOCYTES % (AUTO) 27.8 % (20.5-51.5); MEAN CORPUSCULAR HEMOGLOBIN 30 pg (27-31); MEAN CORPUSCULAR HGB CONC 33 % (32-36); MEAN CORPUSCULAR VOLUME 92 fL (79.0-98.0); MONOCYTES # (AUTO) 0.7 K/uL (0.0-1.0); MONOCYTES % (AUTO) 11.1 % (1.7-9.3); NEUTROPHILS # (AUTO) 3.4 K/uL (1.8-7.7); NEUTROPHILS % (AUTO) 58.2 % (40.0-70.0); PLATELET COUNT (AUTO) 116 K/uL (130-430); RED BLOOD CELL COUNT(AUTO) 4.16 MIL/uL (4.2-6.2); RED CELL DISTRIBUTION WIDTH 15.2 % (9.0-15.0); WHITE BLOOD COUNT (AUTO) 5.9 K/uL (4.8-10.8)
[2023-04-12 16:37] LABS: PROTHROMBIN TIME 10.3 SECS (9.5-12.5)
[2023-04-12 16:39] LABS: ANION GAP 15 (5-15); CALCIUM 9.2 mg/dL (8.4-11.0); CARBON DIOXIDE 23 mmol/L (23-29); CHLORIDE 99 mmol/L (98-107); GFR AFRICAN AMERICAN 137 mL/min (>90); GLUCOSE 82 mg/dL (74-106); POTASSIUM 3.6 mmol/L (3.5-5.1); SODIUM SERUM 137 mmol/L (136-145); UREA NITROGEN, BLOOD 9 mg/dL (8-21)
[2023-04-12 16:41] LABS: GFR NON AFRICAN-AMERICAN 113 mL/min (>90)
[2023-04-12 16:53] LABS: ALANINE AMINOTRANSFERASE 210 U/L (12-78); ALBUMIN 3.9 g/dL (3.4-4.8); ALCOHOL, BLOOD 377 mg/dL (<10); ASPARTATE AMINOTRANSFERASE 177 U/L (10-37); BILIRUBIN,DIRECT 0.3 mg/dL (0.0-0.3); CREATINE KINASE, TOTAL 146 U/L (39-308); LIPASE 61 U/L (16-77); SALICYLATE 1 mg/dL (3-30); TOTAL BILIRUBIN 0.5 mg/dL (0.0-1.0)
[2023-04-12 17:01] LABS: ACETAMINOPHEN < 1 ug/mL (1-30)
[2023-04-12 20:01] VITALS: BP_SYST 150; PULSE 98; RESP 25; TEMP 98; O2SAT 92
== END 2023-04-12 20:01 | disposition home or self-care (01) ==
LOC: SED 15:46
DX: F10.129 Alcohol abuse with intoxication, unspecified (principal); I10 Essential (primary) hypertension; F32.A Depression, unspecified; Y90.8 Blood alcohol level of 240 mg/100 ml or more; Z79.899 Other long term (current) drug therapy
CPT/HCPCS: 99284; 96360; 96361; 80076; 80048; 82550; 83690; 85025; 85610; 85730; 84484; 36415; 93005; G0482; J7030; G0480; G0481

== ENCOUNTER 2023-04-13 17:59 | Emergency (ER) | payer OTHER, MEDICAID ==
[~2023-04-13] VITALS: Ht 172.7 cm; Wt 76.7 kg
[2023-04-13 18:29] VITALS: BP_SYST 122; PULSE 106; RESP 16; TEMP 97.7; O2SAT 95
[2023-04-13 19:12] LABS: BASOPHILS % (AUTO) 0.5 % (0.0-2.0); EOSINOPHILS % (AUTO) 0.7 % (0.0-4.0); HEMATOCRIT 39.1 % (36-54); HEMOGLOBIN 12.9 g/dL (14.0-18.0); LYMPHOCYTES # (AUTO) 1.8 K/uL (1.0-5.5); LYMPHOCYTES % (AUTO) 27.2 % (20.5-51.5); MEAN CORPUSCULAR HEMOGLOBIN 30 pg (27-31); MEAN CORPUSCULAR HGB CONC 33 % (32-36); MEAN CORPUSCULAR VOLUME 92 fL (79.0-98.0); MONOCYTES # (AUTO) 0.6 K/uL (0.0-1.0); MONOCYTES % (AUTO) 9.7 % (1.7-9.3); NEUTROPHILS % (AUTO) 61.9 % (40.0-70.0); PLATELET COUNT (AUTO) 141 K/uL (130-430); RED BLOOD CELL COUNT(AUTO) 4.25 MIL/uL (4.2-6.2); RED CELL DISTRIBUTION WIDTH 15.3 % (9.0-15.0); WHITE BLOOD COUNT (AUTO) 6.5 K/uL (4.8-10.8)
[2023-04-13] MEDS ORDERED: ONDANSETRON HCL 4 MG/2 ML VIAL IVP ONE (19:15)
[2023-04-13] MEDS ORDERED: NACL 0.9% 1,000 ML IV ONE ×2 (19:15→21:00)
[2023-04-13] MEDS ORDERED: THIAMINE HCL 100 MG in NS 50 ML IV ONE (19:15)
[2023-04-13 19:23] LABS: CALCIUM 9.3 mg/dL (8.4-11.0); CREATININE 0.7 mg/dL (0.55-1.30); POTASSIUM 3.5 mmol/L (3.5-5.1)
[2023-04-13 19:37] LABS: ALBUMIN 4.1 g/dL (3.4-4.8); BILIRUBIN,DIRECT 0.2 mg/dL (0.0-0.3); TOTAL BILIRUBIN 0.4 mg/dL (0.0-1.0); TOTAL PROTEIN, SERUM 7.9 g/dL (6.4-8.3)
[2023-04-13] MEDS ORDERED: THIAMINE HCL 100 MG/ML VIAL ONE (19:39)
[2023-04-13] MEDS ORDERED: DIPHENHYDRAMINE INJ 50 MG/ML VIAL IVP ONE (20:00)
[2023-04-13] MEDS ORDERED: HALOPERIDOL LACTATE 5 MG/ML VIAL IM ONE (20:00)
[2023-04-14 02:30] VITALS: BP_SYST 92; PULSE 75; RESP 17; TEMP 98; O2SAT 96
== END 2023-04-14 02:30 | disposition home or self-care (01) ==
LOC: SED 17:59
DX: T51.91XA Toxic effect of unspecified alcohol, accidental (unintentional), initial encounter (principal); F10.129 Alcohol abuse with intoxication, unspecified; R40.4 Transient alteration of awareness; I10 Essential (primary) hypertension; Z79.899 Other long term (current) drug therapy; Y92.89 Other specified places as the place of occurrence of the external cause
CPT/HCPCS: 99285; 96365; 96375; 96361; 80076; 80048; 83690; 85025; 36415; 93005; 96372; G0482; J1200; J1630; J2405; J3411; J7030

== ENCOUNTER 2023-06-12 03:58 | Emergency (ER) | payer OTHER, MEDICAID ==
[~2023-06-12] VITALS: Ht 172.7 cm; Wt 86.2 kg
[2023-06-12 04:00] VITALS: BP_SYST 146; PULSE 134; RESP 20; TEMP 98.2; O2SAT 96
[2023-06-12] MEDS ORDERED: FOLIC ACID 5 MG/ML VIAL IV ONE ×2 (04:30→04:48)
[2023-06-12] MEDS ORDERED: MAGNESIUM SULFATE/D5W 100 ML IV ONE (04:30)
[2023-06-12] MEDS ORDERED: MULTIVITAMINS TAB 1 TABLET PO ONE (04:30)
[2023-06-12] MEDS ORDERED: ONDANSETRON HCL 4 MG/2 ML VIAL IVP ONE (04:30)
[2023-06-12] MEDS ORDERED: THIAMINE HCL 100 MG in NS 50 ML IV ONE (04:30)
[2023-06-12] MEDS ORDERED: NACL 0.9% 1,000 ML IV ONE (04:45)
[2023-06-12] MEDS ORDERED: FOLIC ACID 1 MG, THIAMINE HCL 100 MG, MAGNESIUM SULFATE 1 GM, MVI 10 ML in NACL 0.9% 1,... IV ONE (04:45)
[2023-06-12] MEDS ORDERED: MAGNESIUM SULFATE 1 GM/2 ML VIAL ONE (04:48)
[2023-06-12] MEDS ORDERED: THIAMINE HCL 200 MG/2 ML VIAL ONE (04:48)
[2023-06-12] MEDS ORDERED: MVI 10 ML VIAL IV ONE (04:48)
[2023-06-12 05:28] LABS: BASOPHILS % (AUTO) 0.5 % (0.0-2.0); HEMATOCRIT 43.4 % (36-54); HEMOGLOBIN 14.8 g/dL (14.0-18.0); LYMPHOCYTES % (AUTO) 21.5 % (20.5-51.5); MEAN CORPUSCULAR HEMOGLOBIN 31 pg (27-31); MEAN CORPUSCULAR HGB CONC 34 % (32-36); MEAN CORPUSCULAR VOLUME 90 fL (79.0-98.0); MONOCYTES # (AUTO) 0.7 K/uL (0.0-1.0); MONOCYTES % (AUTO) 6.9 % (1.7-9.3); NEUTROPHILS # (AUTO) 6.8 K/uL (1.8-7.7); NEUTROPHILS % (AUTO) 71.1 % (40.0-70.0); PLATELET COUNT (AUTO) 277 K/uL (130-430); RED CELL DISTRIBUTION WIDTH 13.3 % (9.0-15.0); WHITE BLOOD COUNT (AUTO) 9.5 K/uL (4.8-10.8)
[2023-06-12 05:36] LABS: CREATININE 0.76 mg/dL (0.55-1.30); POTASSIUM 3.7 mmol/L (3.5-5.1)
[2023-06-12 05:40] LABS: ALBUMIN 4.4 g/dL (3.4-4.8); BILIRUBIN,DIRECT 0.2 mg/dL (0.0-0.3); TOTAL BILIRUBIN 0.7 mg/dL (0.0-1.0); TOTAL PROTEIN, SERUM 9.1 g/dL (6.4-8.3)
[2023-06-12 06:28] VITALS: BP_SYST 176; PULSE 110; RESP 18; O2SAT 99
[2023-06-13] MEDS ORDERED: BENZ100C92 PO (05:16)
== END 2023-06-12 06:15 | disposition left against medical advice (07) ==
LOC: SED 03:58
DX: F10.20 Alcohol dependence, uncomplicated (principal); R10.13 Epigastric pain; E87.29 Other acidosis; I10 Essential (primary) hypertension; Z79.899 Other long term (current) drug therapy; Y90.6 Blood alcohol level of 120-199 mg/100 ml
CPT/HCPCS: 99284; 96365; 96375; 80076; 80048; 83690; 85025; 84484; 36415; 93005; G0482; J3490; J3475; J2405; J3411

== ENCOUNTER 2023-06-12 20:15 | Emergency (ER) | payer OTHER, MEDICAID ==
[~2023-06-12] VITALS: Ht 172.7 cm; Wt 81.6 kg
[2023-06-12 20:21] VITALS: BP_SYST 135; PULSE 126; RESP 18; TEMP 98.3; O2SAT 98
[2023-06-12] MEDS ORDERED: LORazepam 1 MG TABLET PO ONE (20:30)
[2023-06-12 21:17] LABS: BASOPHILS % (AUTO) 0.8 % (0.0-2.0); EOSINOPHILS % (AUTO) 0.3 % (0.0-4.0); HEMOGLOBIN 13.8 g/dL (14.0-18.0); LYMPHOCYTES # (AUTO) 2.1 K/uL (1.0-5.5); LYMPHOCYTES % (AUTO) 39.3 % (20.5-51.5); MEAN CORPUSCULAR HEMOGLOBIN 31 pg (27-31); MEAN CORPUSCULAR HGB CONC 34 % (32-36); MEAN CORPUSCULAR VOLUME 90 fL (79.0-98.0); MONOCYTES # (AUTO) 0.5 K/uL (0.0-1.0); MONOCYTES % (AUTO) 10.1 % (1.7-9.3); NEUTROPHILS # (AUTO) 2.6 K/uL (1.8-7.7); NEUTROPHILS % (AUTO) 49.5 % (40.0-70.0); PLATELET COUNT (AUTO) 257 K/uL (130-430); RED BLOOD CELL COUNT(AUTO) 4.43 MIL/uL (4.2-6.2); WHITE BLOOD COUNT (AUTO) 5.2 K/uL (4.8-10.8)
[2023-06-12 21:32] LABS: ANION GAP 17 (5-15); CALCIUM 8.9 mg/dL (8.4-11.0); CARBON DIOXIDE 23 mmol/L (23-29); CHLORIDE 100 mmol/L (98-107); CREATININE 0.67 mg/dL (0.55-1.30); GFR AFRICAN AMERICAN 168 mL/min (>90); GLUCOSE 154 mg/dL (74-106); POTASSIUM 3.3 mmol/L (3.5-5.1); SODIUM SERUM 140 mmol/L (136-145); UREA NITROGEN, BLOOD 8 mg/dL (8-21)
[2023-06-12 21:35] LABS: GFR NON AFRICAN-AMERICAN 139 mL/min (>90)
[2023-06-12 21:36] LABS: PROTHROMBIN TIME 10.1 SECS (9.5-12.5)
[2023-06-12 21:38] LABS: ALANINE AMINOTRANSFERASE 51 U/L (12-78); ALBUMIN 4.2 g/dL (3.4-4.8); ALCOHOL, BLOOD 319 mg/dL (<10); AMYLASE 629 U/L (0-100); ASPARTATE AMINOTRANSFERASE 31 U/L (10-37); BILIRUBIN,DIRECT 0.1 mg/dL (0.0-0.3); LIPASE 57 U/L (16-77); TOTAL BILIRUBIN 0.6 mg/dL (0.0-1.0); TOTAL PROTEIN, SERUM 8.3 g/dL (6.4-8.3)
[2023-06-12 21:54] LABS: ACETONE, SERUM NEGATIVE (NEGATIVE)
[2023-06-12] MEDS ORDERED: ONDANSETRON 4 MG ODT TAB PO ONE (22:00)
[2023-06-12] MEDS ORDERED: NACL 0.9% 1,000 ML IV ONE (22:15)
[2023-06-13] MEDS ORDERED: ONDANSETRON HCL 4 MG/2 ML VIAL IVP ONE (02:00)
[2023-06-13] MEDS ORDERED: LORazepam 2 MG/ML VIAL IVP ONE (02:00)
[2023-06-13] MEDS ORDERED: NACL 0.9% 1,000 ML IV ONE (02:30)
[2023-06-13 03:22] VITALS: RESP 21; O2SAT 98
[2023-06-13] MEDS ORDERED: BENZ100C92 PO (05:16)
[2023-06-13 06:05] VITALS: BP_SYST 123; PULSE 113; TEMP 98
== END 2023-06-13 06:05 | disposition home or self-care (01) ==
LOC: SED 20:15
DX: F10.129 Alcohol abuse with intoxication, unspecified (principal); I10 Essential (primary) hypertension; Z79.899 Other long term (current) drug therapy; Y90.6 Blood alcohol level of 120-199 mg/100 ml
CPT/HCPCS: 99285; 96360; 80076; 80048; 82009; 82150; 83690; 85025; 85610; 85730; 36415; 96374; 96361; 96372; G0482; Q0162; J7030 ×2; J2060; J2405

== ENCOUNTER 2023-10-04 12:48 | Emergency (ER) | payer MEDICAID, OTHER ==
[~2023-10-04] VITALS: Ht 172.7 cm; Wt 86.2 kg
[~2023-10-04 12:48] MED LIST changes: +BENZ100C92 PO; +CHLO25CA11 PO; -LIB25 PO
[2023-10-04 12:55] VITALS: BP_SYST 137; PULSE 114; RESP 18; TEMP 98.3; O2SAT 96
[2023-10-04] MEDS: NACL 0.9% 1,000 ML IV ONE (13:18)
[2023-10-04] MEDS ORDERED: ONDANSETRON HCL 4 MG/2 ML VIAL ONE (13:27)
[2023-10-04] MEDS: ONDANSETRON HCL 4 MG/2 ML VIAL IVP ONE (13:30)
[2023-10-04] MEDS: LORazepam 2 MG/ML VIAL IVP ONE (13:30)
[2023-10-04 13:34] LABS: BASOPHILS % (AUTO) 0.4 % (0.0-2.0); EOSINOPHILS % (AUTO) 0.2 % (0.0-4.0); HEMOGLOBIN 14.5 g/dL (14.0-18.0); LYMPHOCYTES # (AUTO) 2.4 K/uL (1.0-5.5); LYMPHOCYTES % (AUTO) 26.7 % (20.5-51.5); MEAN CORPUSCULAR HEMOGLOBIN 31 pg (27-31); MEAN CORPUSCULAR HGB CONC 35 % (32-36); MEAN CORPUSCULAR VOLUME 90 fL (79.0-98.0); MONOCYTES # (AUTO) 0.4 K/uL (0.0-1.0); MONOCYTES % (AUTO) 4.9 % (1.7-9.3); NEUTROPHILS # (AUTO) 6.1 K/uL (1.8-7.7); NEUTROPHILS % (AUTO) 67.8 % (40.0-70.0); PLATELET COUNT (AUTO) 213 K/uL (130-430); RED BLOOD CELL COUNT(AUTO) 4.65 MIL/uL (4.2-6.2); RED CELL DISTRIBUTION WIDTH 13.8 % (9.0-15.0); WHITE BLOOD COUNT (AUTO) 8.9 K/uL (4.8-10.8)
[2023-10-04] MEDS ORDERED: IBUP-1971 PO (13:49)
[2023-10-04 13:50] LABS: ALBUMIN 4.4 g/dL (3.4-4.8); BILIRUBIN,DIRECT 0.1 mg/dL (0.0-0.3); CALCIUM 8.8 mg/dL (8.4-11.0); CREATININE 0.77 mg/dL (0.55-1.30); POTASSIUM 3.3 mmol/L (3.5-5.1); TOTAL BILIRUBIN 0.5 mg/dL (0.0-1.0); TOTAL PROTEIN, SERUM 8.5 g/dL (6.4-8.3)
[2023-10-04 14:11] LABS: CKMB RELATIVE INDEX 0.9 (0.0-2.9)
[2023-10-04 14:49] LABS: PROTHROMBIN TIME 10.5 SECS (9.5-12.5)
[2023-10-04 15:11] VITALS: BP_SYST 137; PULSE 114; RESP 18; TEMP 98.3; O2SAT 96
== END 2023-10-04 15:12 | disposition home or self-care (01) ==
LOC: SED 12:48
DX: F10.129 Alcohol abuse with intoxication, unspecified (principal); I10 Essential (primary) hypertension; Y90.6 Blood alcohol level of 120-199 mg/100 ml
CPT/HCPCS: 99284; 96374; 71045; 96361; 96375; 80076; 80048; 82150; 82550; 82553; 83690; 85025; 85610; 85730; 36415; 83605; J2060; J2405; J7030